=== PATIENT | female | born 1950 | race Caucasian/White ===

== ENCOUNTER → 2019-04-16 | Outpatient (CLI) | payer MEDICARE ==
--- NOTE | 2019-04-16 13:29 | XR ---
EXAMINATION TYPE: XR lumbar spine 2 or 3V DATE OF EXAM: 04/16/2019 CLINICAL HISTORY: pain TECHNIQUE: Three views of the lumbar spine are submitted. COMPARISON: None. FINDINGS: Rotoscoliosis convex to the right. Severe degenerative disc disease extending from L2-3 through L5-S1 with multilevel vacuum disc. Endplate sclerosis and ventral spondylosis. The lumbar facet joint arth ropathy seen. No evidence for fracture or malalignment. IMPRESSION: No acute fracture or dislocation is seen in the lumbar spine. ICD 10 NO FRACTURE, INITIAL EVALUATION
== END | disposition home or self-care (01) ==
LOC: RADXRMAIN 12:43
PROVIDERS: ATTEND Psychiatry & Neurology Neurology
DX: M54.5 Low back pain (principal)
CPT/HCPCS: 72100

== ENCOUNTER → 2019-04-28 | Outpatient (CLI) | payer MEDICARE ==
--- NOTE | 2019-04-29 01:54 | MR ---
EXAMINATION TYPE: MR lumbar spine wo con DATE OF EXAM: 04/28/2019 COMPARISON: None HISTORY: LBP, LLE radic, scoliosis, hx breast ca 2016/melanoma 2017 TECHNIQUE: Multiplanar, multisequence images of the lumbar spine were acquired. There is degenerative disc space narrowing in the lumbar spine. Vertebra have normal alignment. There is narrowing of all the lumbar disc spaces. There is endplate spur formation and minimal posterior d isc bulging at multiple levels. There is no compression fracture. There is developmentally adequate s jess canal. There is no significant spinal stenosis. There is hypertrophic multilevel facet arthropa thy. There is no paraspinal solid mass. The sacroiliac joints appear intact. There is some mild dural ectasia of the lumbar nerve roots on the left side at L2-3 and bilaterally at L1-2. This is seen als o bilaterally at T12-L1. The visualized sacroiliac joints appear intact. 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 No significant spina l stenosis. Multilevel moderate spondylotic changes with disc space narrowing and endplate spur forma tion. No fracture seen.
== END | disposition home or self-care (01) ==
LOC: RADMRIMAIN 18:54
PROVIDERS: ATTEND Psychiatry & Neurology Neurology
DX: M99.73 Connective tissue and disc stenosis of intervertebral foramina of lumbar region (principal); Q05.7 Lumbar spina bifida without hydrocephalus; Z85.820 Personal history of malignant melanoma of skin; Z85.3 Personal history of malignant neoplasm of breast
CPT/HCPCS: 72148